=== PATIENT | female | born 1995 | race Caucasian/White ===

== ENCOUNTER 2018-04-11 16:41 | Emergency (ER) | payer BC, OTHER ==
[~2018-04-11] VITALS: Ht 157.5 cm; Wt 54.4 kg
--- NOTE | 2018-04-11 17:10 | ED Abdominal Pain ---
General Stated Complaint: FELT A POP/L SIDE PAIN Source of Information: Patient Exam Limitations: No Limitations History of Present Illness Date Seen by Provider: Apr 11, 2018 Time Seen by Provider: 17:08 Initial Comments R with left lower abdominal pain. This began 30 minutes to one hour ago with sensation of a pop in her left lower abdomen. She called her mother who suspected ovarian cyst had ruptured and told her not to worry as long as it was just cramping. However the pain intensified and she had some lightheadedness since she decided to come to the emergency room. She has no personal history of ovarian cysts that she is aware of but states that they do run in her family as her mother and other family members have had them. She does have an IUD. Timing/Duration: 1 Hour Severity/Quality: Moderate Location: LLQ, Suprapubic Radiation: No Radiation Activities at Onset: None Associated Symptoms: Denies Symptoms Allergies and Home Medications Allergies Coded Allergies: Penicillins (Verified Allergy, Unknown, 04/11/18) Patient Home Medication List Home Medication List Reviewed: Yes Review of Systems Review of Systems Constitutional: see HPI EENTM: No Symptoms Reported Respiratory: No Symptoms Reported Cardiovascular: No Symptoms Reported Gastrointestinal: See HPI, Abdominal Pain Genitourinary: No Symptoms Reported Musculoskeletal: no symptoms reported Psychiatric/Neurological: No Symptoms Reported Endocrine: No Symptoms Reported Past Obyazic-Ksphxx-Xowukp Hx Patient Social History Recent Foreign Travel: No Contact w/Someone Who Travel: No Physical Exam Vital Signs Vital Signs - First Documented 04/11/18 16:53 Temp 97.1 Pulse 95 Resp 12 B/P (MAP) 108/75 (86) Pulse Ox 99 Capillary Refill : Height/Weight/BMI Height: '" Weight: lbs. oz. kg; BMI Method: General Appearance: WD/WN, no apparent distress HEENT: PERRL/EOMI, normal ENT inspection Respiratory: no respiratory distress, no accessory muscle use Cardiovascular: regular rate, rhythm, no murmur Gastrointestinal: normal bowel sounds, soft; No guarding, No rebound; tenderness Extremities: normal range of motion, non-tender Neurologic/Psychiatric: alert, normal mood/affect, oriented x 3 Skin: normal color, warm/dry Progress/Results/Core Measures Results/Orders Lab Results Laboratory Tests Test 04/11/18 17:10 04/11/18 17:20 Range/Units Urine Color YELLOW Urine Clarity CLEAR Urine pH 6 5-9 Urine Specific [place] 1.015 L 1.016-1.022 Urine Protein NEGATIVE NEGATIVE Urine Glucose (UA) NEGATIVE NEGATIVE Urine Ketones NEGATIVE NEGATIVE Urine Nitrite NEGATIVE NEGATIVE Urine Bilirubin NEGATIVE NEGATIVE Urine Urobilinogen NORMAL NORMAL MG/DL Urine Leukocyte Esterase NEGATIVE NEGATIVE Urine RBC (Auto) NEGATIVE NEGATIVE Urine RBC NONE /HPF Urine WBC NONE /HPF Urine Squamous Epithelial Cells RARE /HPF Urine Crystals NONE /LPF Urine Bacteria NEGATIVE /HPF Urine Casts NONE /LPF Urine Mucus NEGATIVE /LPF Urine Culture Indicated NO Urine Test NEGATIVE NEGATIVE White Blood Count 7.3 4.3-11.0 10^3/uL Red Blood Count 4.73 4.35-5.85 10^6/uL Hemoglobin 13.9 11.5-16.0 G/DL Hematocrit 40 35-52 % Mean Corpuscular Volume 85 80-99 FL Mean Corpuscular Hemoglobin 29 25-34 PG Mean Corpuscular Hemoglobin Concent 35 32-36 G/DL Red Cell Distribution Width 12.6 10.0-14.5 % Platelet Count 260 130-400 10^3/uL Mean Platelet Volume 9.5 7.4-10.4 FL Neutrophils (%) (Auto) 66 42-75 % Lymphocytes (%) (Auto) 24 12-44 % Monocytes (%) (Auto) 8 0-12 % Eosinophils (%) (Auto) 2 0-10 % Basophils (%) (Auto) 0 0-10 % Neutrophils # (Auto) 4.8 1.8-7.8 X 10^3 Lymphocytes # (Auto) 1.8 1.0-4.0 X 10^3 Monocytes # (Auto) 0.6 0.0-1.0 X 10^3 Eosinophils # (Auto) 0.1 0.0-0.3 10^3/uL Basophils # (Auto) 0.0 0.0-0.1 10^3/uL My Orders Orders - VERONICA TEE MUSIC INSTRUCTOR Ua Culture If Indicated (04/11/18 16:59) Cbc With Automated Diff (04/11/18 16:59) Acetaminophen Tablet/Caplet (Tylenol T (04/11/18 17:15) Ibuprofen Tablet (Motrin Tablet) (04/11/18 17:15) Us Non Ob Transvaginal [id number] (04/11/18 16:59) Hcg,Qualitative Urine (04/11/18 17:30) Medications Given in ED Current Medications Medications Dose Ordered Sig/Johnna Route Start Time Stop Time Status Last Admin Dose Admin Acetaminophen 650 mg ONCE ONCE PO 04/11/18 17:15 04/11/18 17:16 DC 04/11/18 17:18 650 MG Ibuprofen 800 mg ONCE ONCE PO 04/11/18 17:15 04/11/18 17:16 DC 04/11/18 17:18 800 MG Vital Signs/I&O 04/11/18 16:53 Temp 97.1 Pulse 95 Resp 12 B/P (MAP) 108/75 (86) Pulse Ox 99 Diagnostic Imaging Diagonstic Imaging: Ultrasound Comments NAME: MELCHOR AMEZCUA [facility] REC#: [id number] PT STATUS: REG ER : 1995 PHYSICIAN: VERONICA TEE APRN ADMIT DATE: 04/11/18/ER Draft Date of Exam:04/11/18 US NON OB TRANSVAGINAL [id number] EXAM: US NON OB TRANSVAGINAL [id number] INDICATION: Pelvic pain. COMPARISON: None. FINDINGS: The uterus is normal in echogenicity and measures 6.7 x 3.9 x 2.8 cm. The endometrium is trilaminar and measures up to 0.4 cm. No endometrial mass is identified. IUD in the lower uterine segment. The right ovary measures 2.3 x 1.8 x 3.3 cm. The left ovary measures 3.7 x 2.7 x 3.4 cm. There is a complicated cyst in the left ovary measuring up to 2.7 cm. Normal appearing follicles in the right ovary. Normal flow by color Doppler in both ovaries. Small free fluid in the pelvis. IMPRESSION: 1. Complicated cyst in the left ovary measuring up to 2.7 cm is most consistent with a hemorrhagic cyst, possibly endometrioma. 2. Small amount of fluid in the pelvis may be physiologic. 3. IUD in the lower uterine segment. Dictated on workstation # [id number] Dict: 04/11/18 1817 Trans: 04/11/18 1826 NADYA [id number] Interpreted by: TALHA COX MD Electronically signed by: Departure Impression Primary Impression: Ovarian cyst Qualified Codes: N83.202 - Unspecified ovarian cyst, left side Disposition: 01 HOME, SELF-CARE Condition: Stable Departure-Patient Inst. Decision time for Depature: 18:18 Referrals: JANNY GALLARDO DENNIS G MD NO,LOCAL PHYSICIAN (PCP) Primary Care Physician RACH HASSAN DO Patient Instructions: Ovarian Cyst (DC) Add. Discharge Instructions: 1. Tylenol and Motrin for pain 2. Return to ER for concerns 3. Call a crnp tomorrow to make an appointment to be seen Work/School Note: Work Release Form Date Seen in the Emergency Department: Apr 11, 2018 Return to Work: Apr 13, 2018 VERONICA TEE APRN Apr 11, 2018 17:10
[2018-04-11] MEDS ORDERED: IBUPROFEN 800 MG (MOTRIN) TAB PO ONE (17:15)
[2018-04-11] MEDS ORDERED: ACETAMINOPHEN 325 MG TABLET PO ONE (17:15)
[2018-04-11 17:18] LABS: BILIRUBIN,URINE NEGATIVE (NEGATIVE); CLARITY,URINE CLEAR; COLOR,URINE YELLOW; GLUCOSE, URINE (UA) NEGATIVE (NEGATIVE); KETONES,URINE NEGATIVE (NEGATIVE); LEUKOCYTE ESTERASE ,URINE NEGATIVE (NEGATIVE); NITRITE,URINE NEGATIVE (NEGATIVE); PH,URINE 6 (5-9); PROTEIN,URINE NEGATIVE (NEGATIVE); UROBILINOGEN,URINE NORMAL (NORMAL)
[2018-04-11 17:24] LABS: BACTERIA,URINE NEGATIVE /HPF; SQUAMOUS EPITHELIAL CELL,UR RARE /HPF
[2018-04-11 17:26] LABS: BASOPHILS % (AUTO) 0 % (0-10); EOSINOPHILS # (AUTO) 0.1 10^3/uL (0.0-0.3); EOSINOPHILS % (AUTO) 2 % (0-10); HEMATOCRIT 40 % (35-52); HEMOGLOBIN 13.9 G/DL (11.5-16.0); LYMPHOCYTES # (AUTO) 1.8 X 10^3 (1.0-4.0); LYMPHOCYTES % (AUTO) 24 % (12-44); MEAN CORPUSCULAR HEMOGLOBIN 29 PG (25-34); MEAN CORPUSCULAR HGB CONC 35 G/DL (32-36); MEAN CORPUSCULAR VOLUME 85 FL (80-99); MEAN PLATELET VOLUME 9.5 FL (7.4-10.4); MONOCYTES # (AUTO) 0.6 X 10^3 (0.0-1.0); MONOCYTES % (AUTO) 8 % (0-12); NEUTROPHILS # (AUTO) 4.8 X 10^3 (1.8-7.8); NEUTROPHILS % (AUTO) 66 % (42-75); PLATELET COUNT 260 10^3/uL (130-400); RED BLOOD COUNT 4.73 10^6/uL (4.35-5.85); RED CELL DISTRIBUTION WIDTH 12.6 % (10.0-14.5); WHITE BLOOD COUNT 7.3 10^3/uL (4.3-11.0)
--- NOTE | 2018-04-11 18:26 | Diagnostic Imaging Report ---
EXAM: US NON OB TRANSVAGINAL [id number] INDICATION: Pelvic pain. COMPARISON: None. FINDINGS: The uterus is normal in echogenicity and measures 6.7 x 3.9 x 2.8 cm. The endometrium is trilaminar and measures up to 0.4 cm. No endometrial mass is identified. IUD in the lower uterine segment. The right ovary measures 2.3 x 1.8 x 3.3 cm. The left ovary measures 3.7 x 2.7 x 3.4 cm. There is a complicated cyst in the left ovary measuring up to 2.7 cm. Normal appearing follicles in the right ovary. Normal flow by color Doppler in both ovaries. Small free fluid in the pelvis. IMPRESSION: 1. Complicated cyst in the left ovary measuring up to 2.7 cm is most consistent with a hemorrhagic cyst, possibly endometrioma. 2. Small amount of fluid in the pelvis may be physiologic. 3. IUD in the lower uterine segment. Dictated by: Dictated on workstation # [id number]
[2018-04-11 18:37] VITALS: BP 108/75
[2018-04-11] MEDS ORDERED: RX-HYDROCODONE/APAP 5/325 MG #4 TAB PK PO PRN (18:45)
== END 2018-04-11 18:37 | disposition home or self-care (01) ==
LOC: ER 16:44
DX: N83.202 Unspecified ovarian cyst, left side (principal); Z88.0 Allergy status to penicillin; Z97.5 Presence of (intrauterine) contraceptive device
CPT/HCPCS: 36415; 76830; 81000; 84703; 85025